=== PATIENT | female | born 1995 ===

== ENCOUNTER 2020-09-14 20:18 | Emergency (ER) | payer OTHER ==
[2020-09-14 20:24] VITALS: BP 131/88; PULSE 83; TEMP 98.6; BMI 22.6
[2020-09-14] MEDS ORDERED: METHOCARBAMOL 500 MG TABLET PO ONE (20:52)
[2020-09-14] MEDS ORDERED: METHOCARBAMOL 500 MG TABLET ONE (20:59)
== END 2020-09-14 21:09 | disposition home or self-care (01) ==
LOC: JERFT 20:18
DX: M62.830 Muscle spasm of back (principal)
CPT/HCPCS: 99283-25